=== PATIENT | female | born 1965 | race Caucasian/White ===

== ENCOUNTER 2016-06-25 09:42 | Outpatient (CLI) ==
[2015-08-09 14:49] VITALS: BMI 35.0
[2016-06-25 10:08] LABS: PROTHROMBIN TIME 16.1 SEC (9.3-11.0)
== END 2016-06-25 09:43 | disposition home or self-care (01) ==
LOC: LAB 09:42
PROVIDERS: ATTEND Orthopaedic Surgery
DX: Z51.81 Encounter for therapeutic drug level monitoring (principal); Z79.01 Long term (current) use of anticoagulants
CPT/HCPCS: 36415; 85610

== ENCOUNTER 2016-06-30 10:43 | Outpatient (CLI) ==
[2015-08-09 14:49] VITALS: BMI 35.0
[2016-06-30 11:30] LABS: PROTHROMBIN TIME 18.8 SEC (9.3-11.0)
== END 2016-06-30 10:44 | disposition home or self-care (01) ==
LOC: LAB 10:43
PROVIDERS: ATTEND Internal Medicine
DX: Z51.81 Encounter for therapeutic drug level monitoring (principal); Z79.01 Long term (current) use of anticoagulants
CPT/HCPCS: 36415; 85610

== ENCOUNTER → 2016-06-30 | Outpatient (RCR) ==
[2015-08-09 14:49] VITALS: BMI 35.0
--- NOTE | 2016-06-29 09:02 | RS.OPPTEV2 ---
Date of Note: 06/26/16 Visit #: 1 Date of Evaluation: 06/26/16 Payer Source: Medicaid Date of Onset/Injury/Change in Status: 06/22/16 Surgery Performed?: Yes (Right TKA) Treatment Diagnosis: Right knee pain, knee effusion, stiffness, s/p TKA History of Condition/Mechanism of Injury:: Patient reports OA caused progressive knee pain and limited ability to tolerate weight bearing on the right knee. She had a procedure on the meniscus of this knee ~2 years ago. Prior Level of Function.....Patient was independent with: ADL's, Self Care, Work /Vocation, Caregiving, Ambulation/Mobility, Community Integration/Access Functional Limitations: Sleep, Self Care, ADL's, Reaching, Pushing, Pulling, Lifting, Carrying, Sitting, Standing, Bending, Squatting, Ambulation, Community Access/Integration Current Subjective/complaints:: Patient reports having surgery on Wednesday and coming home on Wednesday. States she received therapy while at the hospital, including exercises, ambulation, and stair training. She is using a rollator for ambulation. States she is having more soreness in the knee over the last few days. States she is using ice on the knee and taking her pain medication as prescribed. She states her dressing on her right knee is not supposed to be touched/removed until she returns to her surgeon on July 07. Treatment Side (optional): Right Medical History Surgical History: Knee Replacement (right TKA 06/22/16) Smoking Status: Current every day smoker Hx Home Medications: [place] 10, Tramadol, Warfarin Patient's Goals: Her goal is to be able to perform all selfcare, ADL's, and ambulation without right knee pain or difficulty. Pain Assessment - Pain Description Pain Location: right knee pain Pain Description: Throbbing, Aching Current Pain Intensity: 8/10 Worst Pain Intensity: 10/10 Functional Outcome Measure LE Functional Scale: 2 (2/80=97.5% impairment) - G Codes & Severity Modifier G Codes & Modifier: NA Source of G Code score: NA Observation - Observation Inspection: right knee presents with PAULO hose and dressing to the right knee. Girth Measurement Lower: Unable to take accurate girth measurements due to PAULO hose and dressing in place to the right knee. Patient adamant that dressing is not to be removed until she goes back to the surgeon for a follow up appointment. Gait - Gait Pattern Gait Comments: Patient ambulates with rollator, independently with decreased stance on the right LE. Demonstrates decreased right knee and hip flexion during swing phase. - Left Knee ROM Left Knee Extension: full extension Left Knee Flexion: 135 (degrees AROM) - Right Knee ROM Right Knee Extension: -15 degrees from full extension Right Knee Flexion: 100 (degrees AROM) Knee ROM Limitations: Soft Tissue Tightness, Pain - Left Knee Strength Left Knee Extension: 5 Normal Left Knee Flexion: 5 Normal - Right Knee Strength Right Knee Extension: 4- Good- Right Knee Flexion: 4- Good- Palpation Comments:: General tenderness throughout the right knee joint. Sensation - Sensation Comments: Reports hyposensitivity along the lateral side of the incision on the right knee. Interventions - Exercise/Activities/Manual Therapy Exercises/Activities: Patient assisted with ROM into flexion and extension of the right knee. She performs SLR with assistance, SAQ, Quad sets, AP's. She has these exercises for home from the hospital. Advised to continue icing the knee and shown how to elevate the LE from the knee to the foot. Manual Therapy: NA - Objective Findings Observations,measurements,etc.: right knee extension -10 degrees following ROM exercises - Charges Total Direct Minutes: 49 mins Total Treatment Time: 49 mins Procedures billed for this date of service:: Evaluation medium complexity Assessment Assessment: Patient presents to therapy 4 days s/p right TKA. She presents with decreased functional ROM and strength in the right LE. Joint effusion prevents full PROM. Her ability with selfcare, ADL's, and ambulation is limited at this time due to right knee pain and limited ROM. She demostrates great potential to benefit from therapy to be able to regain full independence with all selfcare and ADL's and progress away from an assistive device to a normal gait pattern. Patient Education: Education of diagnosis, Body/Joint mechanics, Home Exercise Program, Home Safety, Activity Modification, Education of Plan of Care Rehab Potential: Good Short Term Goals Goal #1: Right knee active extension to -3 degrees. Goal to be met by: 07/17/16 Goal #2: Right knee active flexion to 110 degrees. Goal to be met by: 07/17/16 Goal #3: Right quad strength 4+/5. Goal to be met by: 07/17/16 Goal #4: Patient to ambulate with good heel strike and knee flexion on right LE. Goal to be met by: 07/17/16 Manager Of Loss Prevention Operations Goals Goal #1: Pt able to continue HEP to maintain level of function at discharge. Goal to be met by: 08/10/16 Goal #2: R knee AROM WFL's to perform all ADL's and selfcare w/o difficulty. Goal to be met by: 08/10/16 Goal #3: Pt to amb. w/o an assistive device with min. gait deviation, community dist Goal to be met by: 08/10/16 Goal #4: Score on LE functional scale improved to 50/80. Goal to be met by: 08/10/16 Plan - Treatment to be Provided Procedures: Therapeutic Exercises, Therapeutic Activity, Gait Training, Patient Education Modalities: Electrical Stimulation, Cryotherapy, Hot Packs - Treatment Plan Frequency: 3 X week Duration: 6 weeks ORDER # VISITS AND/OR THROUGH DATE: 08/10/16 - Treatment Code (1) Knee pain Qualifiers: Laterality: right Chronicity: acute Qualified Description: Acute pain of right knee Qualifier Code(s): (M25.561) Pain in right knee (2) Knee stiffness Qualifiers: Laterality: right Qualified Description: Knee stiffness, right Qualifier Code(s): (M25.661) Stiffness of right knee, not elsewhere classified (3) Knee joint effusion Qualifiers: Laterality: right Qualified Description: Effusion of right knee Qualifier Code(s): (M25.461) Effusion, right knee (4) Aftercare following joint replacement surgery Qualifiers: Joint replacement surgery site: knee Laterality: right Qualified Description: Aftercare following right knee joint replacement surgery Qualifier Code(s): (Z47.1) Aftercare following joint replacement surgery, ( Z96.651) Presence of right artificial knee joint
--- NOTE | 2016-06-29 09:04 | RS.CXNS ---
Date of scheduled appointment: 06/29/16 Type: Cancel Reason for Cancel/NS: No reason given.
--- NOTE | 2016-06-30 15:06 | RS.OPPTDN ---
Subjective Date of Note: 06/30/16 Visit #: 2 Date of Evaluation: 06/26/16 Payer Source: Medicaid Treatment Diagnosis: Right knee pain, knee effusion, stiffness, s/p TKA Current Subjective/complaints:: Patient reports she is doing well with HEP and is not walking without walker. Pain Assessment - Pain Description Pain Location: right knee pain Pain Description: Throbbing, Aching Current Pain Intensity: mod Interventions - Exercise/Activities/Manual Therapy Exercises/Activities: 40mins Patient assisted with ROM into flexion and extension of the right knee. Gastroc stretching. SLR and hip abduction. SAQ and ankle pumps. Quad sets. Heel slides. Red theraband for hamstring curls and ankle df. Passive stretching of knee extension with bolster under ankle. Ended on stationary bike x5mins alt forward and backward revolutions. Total minutes of Exercise: 40mins Manual Therapy: NA HOME EXERCISE PROGRAM: SLR, SAQ, hip abd, heel slides, ankle pumps, quad sets, standing ham curls - Charges Total Direct Minutes: 40mins Total Treatment Time: 40mins Procedures billed for this date of service:: EX3 Assessment: Patient responding well to exercises. Patient Education: Education of diagnosis, Body/Joint mechanics, Home Exercise Program, Home Safety, Activity Modification Patient demonstrates compliance with HEP?: Yes Short Term Goals Goal #1: Right knee active extension to -3 degrees. Goal to be met by: 07/17/16 Progress towards Goal:: Progressing Goal #2: Right knee active flexion to 110 degrees. Goal to be met by: 07/17/16 Progress towards Goal:: Progressing Goal #3: Right quad strength 4+/5. Goal to be met by: 07/17/16 Progress towards Goal:: Progressing Goal #4: Patient to ambulate with good heel strike and knee flexion on right LE. Goal to be met by: 07/17/16 Wire Spiral Binder Goals Goal #1: Pt able to continue HEP to maintain level of function at discharge. Goal to be met by: 08/10/16 Goal #2: R knee AROM WFL's to perform all ADL's and selfcare w/o difficulty. Goal to be met by: 08/10/16 Goal #3: Pt to amb. w/o an assistive device with min. gait deviation, community dist Goal to be met by: 08/10/16 Goal #4: Score on LE functional scale improved to 50/80. Goal to be met by: 08/10/16 Plan PLAN OF CARE EXPIRES ON:: 08/10/16 ORDER # VISITS AND/OR THROUGH DATE: 08/10/16 PLAN: Continue Plan of Care
== END ==
PROVIDERS: ATTEND Orthopaedic Surgery
DX: M25.561 Pain in right knee (principal); Z96.651 Presence of right artificial knee joint

== ENCOUNTER 2016-07-02 12:31 | Outpatient (CLI) ==
[2015-08-09 14:49] VITALS: BMI 35.0
[2016-07-02 13:01] LABS: PROTHROMBIN TIME 20.8 SEC (9.3-11.0)
== END 2016-07-02 12:32 | disposition home or self-care (01) ==
LOC: LAB 12:31
PROVIDERS: ATTEND Orthopaedic Surgery
DX: Z51.81 Encounter for therapeutic drug level monitoring (principal); Z79.01 Long term (current) use of anticoagulants; M25.561 Pain in right knee; Z96.651 Presence of right artificial knee joint
CPT/HCPCS: 36415; 85610

== ENCOUNTER 2016-07-06 13:15 | Outpatient (CLI) ==
[2015-08-09 14:49] VITALS: BMI 35.0
[2016-07-06 13:42] LABS: PROTHROMBIN TIME 13.4 SEC (9.3-11.0)
== END 2016-07-06 13:16 | disposition home or self-care (01) ==
LOC: LAB 13:15
PROVIDERS: ATTEND Orthopaedic Surgery
DX: Z51.81 Encounter for therapeutic drug level monitoring (principal); Z79.01 Long term (current) use of anticoagulants
CPT/HCPCS: 36415; 85610

== ENCOUNTER 2016-07-06 14:00 | Outpatient (RCR) ==
[2015-08-09 14:49] VITALS: BMI 35.0
--- NOTE | 2016-07-02 14:08 | RS.OPPTDN ---
Subjective Date of Note: 07/02/16 Visit #: 3 Date of Evaluation: 06/26/16 Payer Source: Medicaid Treatment Diagnosis: Right knee pain, knee effusion, stiffness, s/p TKA Current Subjective/complaints:: Patient reports increased stiffness in the right knee today. States she feels she may be getting sick and she is not feeling well. Pain Assessment - Pain Description Pain Location: right knee pain Current Pain Intensity: 3-4/10 Interventions - Exercise/Activities/Manual Therapy Exercises/Activities: 40mins Began on stationary bike 3mins. Patient assisted with ROM into flexion and extension of the right knee. Gastroc stretching. SLR and hip abduction 2s/10reps each. SAQ and ankle pumps. Quad sets. Heel slides. Red theraband for hamstring curls and ankle df. Passive stretching of knee extension with bolster under ankle. In sitting, red theraband for ham curl. Isometric knee flexion and extension with knee at 90 degrees flexion. Ended with additional 3mins on stationary bike. Total minutes of Exercise: 40mins. Manual Therapy: NA HOME EXERCISE PROGRAM: SLR, SAQ, hip abd, heel slides, ankle pumps, quad sets, standing ham curls - Charges Total Direct Minutes: 40mins Total Treatment Time: 46mins Procedures billed for this date of service:: EX3 Assessment: Patient able to progress with exercise and with ROM. Patient Education: Education of diagnosis, Body/Joint mechanics, Home Exercise Program, Home Safety Patient demonstrates compliance with HEP?: Yes Short Term Goals Goal #1: Right knee active extension to -3 degrees. Goal to be met by: 07/17/16 Progress towards Goal:: Progressing Goal #2: Right knee active flexion to 110 degrees. Goal to be met by: 07/17/16 Progress towards Goal:: Progressing Goal #3: Right quad strength 4+/5. Goal to be met by: 07/17/16 Progress towards Goal:: Progressing Goal #4: Patient to ambulate with good heel strike and knee flexion on right LE. Goal to be met by: 07/17/16 Progress towards Goal:: Progressing [facility] Goals Goal #1: Pt able to continue HEP to maintain level of function at discharge. Goal to be met by: 08/10/16 Goal #2: R knee AROM WFL's to perform all ADL's and selfcare w/o difficulty. Goal to be met by: 08/10/16 Progress towards goal: Progressing Goal #3: Pt to amb. w/o an assistive device with min. gait deviation, community dist Goal to be met by: 08/10/16 Goal #4: Score on LE functional scale improved to 50/80. Goal to be met by: 08/10/16 Plan PLAN OF CARE EXPIRES ON:: 08/10/16 ORDER # VISITS AND/OR THROUGH DATE: 08/10/16 PLAN: Continue Plan of Care
--- NOTE | 2016-07-06 16:25 | RS.OPPTDN ---
Subjective Date of Note: 07/06/16 Visit #: 4 Date of Evaluation: 06/26/16 Payer Source: Medicaid Treatment Diagnosis: Right knee pain, knee effusion, stiffness, s/p TKA Current Subjective/complaints:: Patient reports she is doing better each day. Will see physician tomorrow and will have bandage removed. States she feels ROM and ambulation will improve when bandage is off. Pain Assessment - Pain Description Pain Location: right knee pain Current Pain Intensity: 3-4/10 Interventions - Exercise/Activities/Manual Therapy Exercises/Activities: 40mins Began on stationary bike 3mins. Patient assisted with ROM into flexion and extension of the right knee. Gastroc stretching. SLR and hip abduction 2s/10reps each. SAQ and ankle pumps. Quad sets. Heel slides. Red theraband for hamstring curls and ankle df. Passive stretching of knee extension with bolster under ankle. In sitting, red theraband for ham curl. Isometric knee flexion and extension with knee at 90 degrees flexion. Ended with additional 3mins on stationary bike. Total minutes of Exercise: 40mins Manual Therapy: NA HOME EXERCISE PROGRAM: SLR, SAQ, hip abd, heel slides, ankle pumps, quad sets, standing ham curls - Objective Findings Observations,measurements,etc.: Patient demos right knee flexion to 117 degrees and extension to -5 to -6 degrees. Walking without assistive device with minimal gait deviation. - Charges Total Direct Minutes: 40mins Total Treatment Time: 45mins Procedures billed for this date of service:: EX3 Assessment: Patient progressing well with EX and with ROM. She feels ROM will improve when bandage is removed. Patient Education: Body/Joint mechanics, Home Exercise Program, Home Safety, Activity Modification Patient demonstrates compliance with HEP?: Yes Short Term Goals Goal #1: Right knee active extension to -3 degrees. Goal to be met by: 07/17/16 (75%) Progress towards Goal:: Progressing Goal #2: Right knee active flexion to 110 degrees. Goal to be met by: 07/17/16 (100%) Progress towards Goal:: Met Comments:: 117 degrees Goal #3: Right quad strength 4+/5. Goal to be met by: 07/17/16 (80%) Progress towards Goal:: Progressing Goal #4: Patient to ambulate with good heel strike and knee flexion on right LE. Goal to be met by: 07/17/16 (50%) Progress towards Goal:: Progressing Intermediate Goals Goal #1: Pt able to continue HEP to maintain level of function at discharge. Goal to be met by: 08/10/16 Goal #2: R knee AROM WFL's to perform all ADL's and selfcare w/o difficulty. Goal to be met by: 08/10/16 Progress towards goal: Progressing Goal #3: Pt to amb. w/o an assistive device with min. gait deviation, community dist Goal to be met by: 08/10/16 (100%) Progress towards goal: Met Goal #4: Score on LE functional scale improved to 50/80. Goal to be met by: 08/10/16 Plan PLAN OF CARE EXPIRES ON:: 08/10/16 ORDER # VISITS AND/OR THROUGH DATE: 08/10/16 PLAN: Continue Plan of Care (Continue and progress with strenthening and ROM to increase functional activity level.)
--- NOTE | 2016-07-09 16:20 | RS.CXNS ---
Date of scheduled appointment: 07/09/16 Type: No Show
--- NOTE | 2016-07-20 14:23 | RS.QUICKDC ---
Discharge from PT Date of Discharge: 07/20/16 Number of Visits: 4 Reason for Discharge: Patient attended 4 sessions and progressed with strengthening and ROM following a right TKR. She demonstrated ROM WFL's and was independent with basic HEP. She cancelled one appointment and no-showed last scheduled appointment. Patient has not been seen for 2 weeks. Please refer to last Daily Note for specifics of treatment and progress with goals. Discharge at this time due to lack of attendance.
== END 2016-07-28 ==
PROVIDERS: ATTEND Orthopaedic Surgery
DX: M25.561 Pain in right knee (principal); Z96.651 Presence of right artificial knee joint

== ENCOUNTER 2016-07-13 15:20 | Outpatient (CLI) ==
[2015-08-09 14:49] VITALS: BMI 35.0
[2016-07-13 15:39] LABS: PROTHROMBIN TIME 10.2 SEC (9.3-11.0)
== END 2016-07-13 15:21 | disposition home or self-care (01) ==
LOC: LAB 15:20
PROVIDERS: ATTEND Orthopaedic Surgery
DX: Z51.81 Encounter for therapeutic drug level monitoring (principal); Z79.01 Long term (current) use of anticoagulants
CPT/HCPCS: 36415; 85610

== ENCOUNTER 2016-07-16 12:15 | Outpatient (CLI) ==
[2015-08-09 14:49] VITALS: BMI 35.0
[2016-07-16 12:45] LABS: PROTHROMBIN TIME 12.4 SEC (9.3-11.0)
== END 2016-07-16 12:16 | disposition home or self-care (01) ==
LOC: LAB 12:15
PROVIDERS: ATTEND Orthopaedic Surgery
DX: Z51.81 Encounter for therapeutic drug level monitoring (principal); Z79.01 Long term (current) use of anticoagulants
CPT/HCPCS: 36415; 85610

== ENCOUNTER 2017-10-26 09:40 | Outpatient (CLI) ==
[2015-08-09 14:49] VITALS: BMI 35.0
--- NOTE | 2017-10-27 11:20 | MAMMO ---
EXAM: Bilateral digital screening mammogram (2-D and 3-D) History: Baseline screening Findings: MLO and CC views of bilateral breasts demonstrate scattered fibroglandular breast parenchy ma. CAD was reviewed by the radiologist. Tomosynthesis was performed. There are no dominant masses , no suspicious microcalcifications and no architectural distortions Impression: Negative mammogram. Recommend followup routine screening mammography in 1 year. BIRADS 1
== END 2017-10-26 09:41 | disposition home or self-care (01) ==
LOC: RAD 09:40
PROVIDERS: ATTEND Nurse Practitioner Family
DX: Z12.31 Encounter for screening mammogram for malignant neoplasm of breast (principal)
CPT/HCPCS: 77067